=== PATIENT | female | born 1950 | race Caucasian/White ===

== ENCOUNTER 2017-01-13 00:29 | Inpatient (IN) | payer OTHER ==
[2017-01-13 01:12] LABS: BASOPHIL 0.4 % (0-2); EOSINOPHIL 0.6 % (0-7); HCT 45.6 % (37.0-47.0); HGB 15.7 g/dl (12.5-16.0); LYMPHOCYTE 22.7 % (15-48); MCH 32.8 pg (25.0-31.0); MCHC 34.4 g/dL (32.0-36.0); MCV 95.2 fL (78.0-100.0); MONOCYTE 6.7 % (0-12); MPV 8.8 fL (6.0-9.5); NEUTROPHIL 69.6 % (41-80); PLT 221 K/uL (150-400); RBC 4.79 M/uL (4.20-5.40); RDW 14.8 % (11.5-14.0); WBC 7.1 K/uL (4.0-10.5)
[2017-01-13 01:17] LABS: LACTIC ACID 1.5 mmol/L (0.5-2.2)
[2017-01-13 01:18] LABS: INR 0.91 (0.9-1.2); PROTHROMBIN TIME 11.9 SECONDS (11.7-14.0); PTT 26.2 SECONDS (23.2-31.4)
[2017-01-13 01:19] LABS: D-DIMER 2.26 ug/mLFEU (0.00-0.41)
[2017-01-13 01:20] LABS: BILIRUBIN - TOTAL 0.5 mg/dL (0.1-1.0); CREATININE 0.9 mg/dL (0.5-1.0)
[2017-01-13 01:22] LABS: CKMB 4.32 ng/mL (0.97-4.94); TROPONIN T < 0.010 ng/mL
[2017-01-13 01:24] LABS: PRO-BNP 855 pg/mL (0-125)
[2017-01-13 07:50] LABS: BASOPHIL 0.1 % (0-2); EOSINOPHIL 0 % (0-7); HCT 44.1 % (37.0-47.0); HGB 14.7 g/dl (12.5-16.0); LYMPHOCYTE 3.8 % (15-48); MCH 32.2 pg (25.0-31.0); MCHC 33.3 g/dL (32.0-36.0); MCV 96.5 fL (78.0-100.0); MONOCYTE 0.7 % (0-12); MPV 8.6 fL (6.0-9.5); NEUTROPHIL 95.4 % (41-80); PLT 204 K/uL (150-400); RBC 4.57 M/uL (4.20-5.40); RDW 14.6 % (11.5-14.0); WBC 6.8 K/uL (4.0-10.5)
[2017-01-13 08:08] LABS: POTASSIUM 3.8 mmol/L (3.5-5.1)
[2017-01-13 08:09] LABS: TROPONIN T < 0.010 ng/mL
[2017-01-13 08:13] LABS: CKMB 5.49 ng/mL (0.97-4.94)
[2017-01-13 12:48] LABS: POTASSIUM 4.2 mmol/L (3.5-5.1)
[2017-01-13 12:49] LABS: CKMB 4.84 ng/mL (0.97-4.94); TROPONIN T < 0.010 ng/mL
[2017-01-14 04:05] LABS: HCT 41.5 % (37.0-47.0); HGB 13.5 g/dl (12.5-16.0); MCH 31.6 pg (25.0-31.0); MCHC 32.5 g/dL (32.0-36.0); MCV 97.2 fL (78.0-100.0); MPV 8.9 fL (6.0-9.5); RBC 4.27 M/uL (4.20-5.40); RDW 14.6 % (11.5-14.0); WBC 8.8 K/uL (4.0-10.5)
[2017-01-14 04:18] LABS: CREATININE 0.9 mg/dL (0.5-1.0); POTASSIUM 4.1 mmol/L (3.5-5.1)
[2017-01-15 05:49] LABS: HCT 42.5 % (37.0-47.0); HGB 13.9 g/dl (12.5-16.0); MCH 31.9 pg (25.0-31.0); MCHC 32.7 g/dL (32.0-36.0); MCV 97.5 fL (78.0-100.0); RBC 4.36 M/uL (4.20-5.40); RDW 14.8 % (11.5-14.0); WBC 8.8 K/uL (4.0-10.5)
[2017-01-15 06:21] LABS: POTASSIUM 3.7 mmol/L (3.5-5.1)
[2017-01-16] MEDS ORDERED: VIBRAMYCIN100 MG PO (10:25)
[2017-01-16] MEDS ORDERED: PREDNISONE10 M1 PO (10:25)
[2017-01-16] MEDS ORDERED: LIPITOR40 MG PO (10:26)
[2017-01-16] MEDS ORDERED: TOPROL XL 25MG25 MG PO (10:26)
[2017-01-16] MEDS ORDERED: VALSARTAN-HCTZ1 EAC4 PO (10:26)
[2017-01-16] MEDS ORDERED: THEOPHYLLINE400 MG PO (10:27)
[2017-01-16] MEDS ORDERED: ABILIFY5 M1 PO (10:28)
[2017-01-16] MEDS ORDERED: VENTOLIN HFA IN18 GM INH (10:28)
[2017-01-16] MEDS ORDERED: SPIRIVA 18MCG18 MCG INH (10:28)
[2017-01-16] MEDS ORDERED: ZOLOFT50 MG PO (10:29)
[2017-01-16] MEDS ORDERED: SYMBICORT 16010.2 GM INH (10:29)
== END 2017-01-15 14:28 | disposition home or self-care (01) | DRG 189 ==
LOC: FER 00:29 → FICU 03:30 → FMS 01-14 10:18
PROVIDERS: Emergency Medicine Emergency Medical Services; Internal Medicine; ADMIT Internal Medicine
DX: J96.01 Acute respiratory failure with hypoxia (principal); J44.1 Chronic obstructive pulmonary disease with (acute) exacerbation; I10 Essential (primary) hypertension; G47.30 Sleep apnea, unspecified; I25.10 Atherosclerotic heart disease of native coronary artery without angina pectoris; Z95.1 Presence of aortocoronary bypass graft; K21.9 Gastro-esophageal reflux disease without esophagitis; Z80.8 Family history of malignant neoplasm of other organs or systems; F17.210 Nicotine dependence, cigarettes, uncomplicated; E87.6 Hypokalemia
CPT/HCPCS: 36415; 36600; 71010; 71275; 80048; 80053; 80198; 82550; 82553; 82803; 83605; 83880; 84132; 84484; 85025; 85379; 85610; 85730; 87040; 93005; 94640; 94660; 94664; 94760; 97110; 97162; 97166; 97535; J1644; J2930; Q9967

== ENCOUNTER → 2020-12-10 | Day surgery (SDC) | payer OTHER ==
[~2020-12-10] MED LIST: ABILIFY5 M1 PO; ASPIRIN CHEWABL81 MG PO; ASPIRIN325 MG PO; CLARITIN10 MG PO; FLEXERIL5 MG PO; IBUPROFEN800 M1 PO; LIPITOR40 MG PO; LOPRESSOR50 MG PO; MEDROL 4MG DOSEP4 MG PO; NORCO 5-325 TA1 EACH PO; PLAVIX75 MG PO; PREDNISONE10 M1 PO; PROBIOTIC1 EAC1 PO; PULMICORT0.5 MG/2 M NEB; SPIRIVA 18MCG18 MCG INH; SPIRIVA 2.5 MCG INH; SPIRIVA18 MCG INH; STIOLTO RESPIMAT INH; SYMBICORT 16010.2 GM INH; THEOPHYLLINE400 MG PO; TOPROL XL 25MG25 MG PO; TRILOGY INH; VALSARTAN-HCTZ1 EAC4 PO; VENTOLIN (2.5 MG/3 M INH; VENTOLIN HFA IN18 GM INH; VIBRAMYCIN100 MG PO; WELLBUTRIN XL150 MG PO; ZOLOFT50 MG PO
== END | disposition home or self-care (01) ==
LOC: FAS 08:36
DX: Z12.11 Encounter for screening for malignant neoplasm of colon (principal); D12.3 Benign neoplasm of transverse colon; K57.30 Diverticulosis of large intestine without perforation or abscess without bleeding; K21.9 Gastro-esophageal reflux disease without esophagitis; J44.9 Chronic obstructive pulmonary disease, unspecified; F17.210 Nicotine dependence, cigarettes, uncomplicated; G47.30 Sleep apnea, unspecified; I25.810 Atherosclerosis of coronary artery bypass graft(s) without angina pectoris; E78.00 Pure hypercholesterolemia, unspecified; I10 Essential (primary) hypertension; M81.0 Age-related osteoporosis without current pathological fracture; Z86.010 Personal history of colon polyps; Z88.8 Allergy status to other drugs, medicaments and biological substances; Z86.73 Personal history of transient ischemic attack (TIA), and cerebral infarction without residual deficits; Z91.048 Other nonmedicinal substance allergy status; Z20.822 Contact with and (suspected) exposure to COVID-19; Z90.49 Acquired absence of other specified parts of digestive tract; Z79.01 Long term (current) use of anticoagulants; Z79.899 Other long term (current) drug therapy; Z98.51 Tubal ligation status; Z80.3 Family history of malignant neoplasm of breast
CPT/HCPCS: 88305; 93005; J2704; J7120